=== PATIENT | male | born 1990 | race Caucasian/White ===

== ENCOUNTER 2017-06-04 02:58 | Emergency (ER) | payer SELFPAY ==
[~2017-06-04] VITALS: Ht 182.9 cm; Wt 88.9 kg
[2017-06-04] MEDS ORDERED: CLINDAMYCIN PMX 600MG/50ML 50 ML ONE (03:54)
[2017-06-04] MEDS ORDERED: SODIUM CHLORIDE FLUSH 10ML SYR IVF ONE (04:00)
[2017-06-04] MEDS ORDERED: SODIUM CHLORIDE 0.9% 1,000ML IVBOLUS ONE (04:00)
[2017-06-04] MEDS ORDERED: CLINDAMYCIN PMX 600MG/50ML 50 ML IVPB ONE (04:00)
[2017-06-04 04:02] LABS: HEMATOCRIT 42.2 % (39.2-51.8); HEMOGLOBIN 14.3 g/dL (13.7-18.0); WHITE BLOOD COUNT 8.7 x10^3/uL (3.4-10)
[2017-06-04 04:11] LABS: BLOOD UREA NITROGEN 12 mg/dL (7-18)
[2017-06-04 04:58] VITALS: BP 120/76
== END 2017-06-04 05:50 | disposition home or self-care (01) ==
LOC: ED 05:44
DX: M79.672 Pain in left foot (principal); M79.671 Pain in right foot; M79.662 Pain in left lower leg; I10 Essential (primary) hypertension; F15.10 Other stimulant abuse, uncomplicated
CPT/HCPCS: 36415; 80048; 82040; 83605; 85025; 96365; 99284; J7030

== ENCOUNTER 2018-05-02 04:30 | Emergency (ER) | payer MEDICAID ==
[~2018-05-02] VITALS: Ht 185.4 cm; Wt 90.4 kg
[2018-05-02 04:32] VITALS: BP 126/87
[2018-05-02 05:44] LABS: BASOPHILS # (AUTO) 0.06 x10^3/uL (0-0.1); BASOPHILS % (AUTO) 1 % (0-1); EOSINOPHILS # (AUTO) 0.24 x10^3/uL (0-0.4); EOSINOPHILS % (AUTO) 3 % (1-7); LYMPHOCYTES % (AUTO) 36 % (22-44); MD NO; MEAN CORPUSCULAR HEMOGLOBIN 30.8 pg (27.5-34.5); MEAN CORPUSCULAR HGB CONC 34.2 g/dL (33.2-36.2); MEAN CORPUSCULAR VOLUME 90.1 fL (81-97); MEAN PLATELET VOLUME 7.8 fL (7.4-10.4); MONOCYTES # (AUTO) 0.88 x10^3/uL (0.2-0.8); MONOCYTES % (AUTO) 10 % (2-9); NEUTROPHILS # (AUTO) 4.42 x10^3/uL (1.8-6.8); NEUTROPHILS % (AUTO) 51 % (42-75); PLATELET COUNT 286 x10^3/uL (130-400); RED BLOOD COUNT 4.65 x10^6/uL (4.38-5.82); RED CELL DISTRIBUTION WIDTH 11.6 % (9.4-14.8)
[2018-05-02 05:51] LABS: ALBUMIN 3.5 g/dL (3.4-5.0); ANION GAP 8 mmol/L (5-15); CALCIUM 8.5 mg/dL (8.5-10.1); CHLORIDE 104 mmol/L (98-107); CREATININE 0.98 mg/dL (0.7-1.3)
== END 2018-05-02 06:35 | disposition home or self-care (01) ==
LOC: ED 04:42
DX: L03.115 Cellulitis of right lower limb (principal); I10 Essential (primary) hypertension; Z72.9 Problem related to lifestyle, unspecified
CPT/HCPCS: 36415; 80048; 82040; 85025; 99284

== ENCOUNTER 2018-11-28 12:31 | Inpatient (IN) | payer OTHER ==
[~2018-11-28] VITALS: Ht 185.4 cm; Wt 93.7 kg
[2018-11-28] MEDS ORDERED: SODIUM CHLORIDE FLUSH 10ML SYR IVF ONE (13:00)
--- NOTE | 2018-11-28 13:11 | NUR ---
Received report from MELO Austin. All questions answered. Assuming care of pt. DWAYNEN. No needs expressed.
[2018-11-28 14:01] LABS: BASOPHILS # (AUTO) 0.02 x10^3/uL (0-0.1); BASOPHILS % (AUTO) 0 % (0-1); EOSINOPHILS % (AUTO) 1 % (1-7); LYMPHOCYTES # (AUTO) 2.13 x10^3/uL (1-3.4); LYMPHOCYTES % (AUTO) 18 % (22-44); MD NO; MEAN CORPUSCULAR HGB CONC 32.5 g/dL (33.2-36.2); MEAN CORPUSCULAR VOLUME 89.1 fL (81-97); MEAN PLATELET VOLUME 8.2 fL (7.4-10.4); MONOCYTES # (AUTO) 1.07 x10^3/uL (0.2-0.8); MONOCYTES % (AUTO) 9 % (2-9); NEUTROPHILS # (AUTO) 8.32 x10^3/uL (1.8-6.8); NEUTROPHILS % (AUTO) 71 % (42-75); PLATELET COUNT 302 x10^3/uL (130-400); RED BLOOD COUNT 5.32 x10^6/uL (4.38-5.82)
[2018-11-28 14:15] LABS: ALBUMIN 3.4 g/dL (3.4-5.0); ANION GAP 7 mmol/L (5-15); CALCIUM 9.6 mg/dL (8.5-10.1); CHLORIDE 103 mmol/L (98-107); CREATININE 0.86 mg/dL (0.7-1.3)
[2018-11-28] MEDS ORDERED: CEFTRIAXONE PMX 1GM/50ML 50 ML IVPB ONE (14:30)
[2018-11-28] MEDS ORDERED: HYDROmorphone 1 MG/ML, 1ML INJ IVPush PRN (14:30)
[2018-11-28] MEDS ORDERED: ONDANSETRON 2MG/ML, 2ML IVPush ONE (14:30)
[2018-11-28] MEDS ORDERED: CEFTRIAXONE PMX 1GM/50ML 50 ML ONE (14:37)
[2018-11-28] MEDS ORDERED: ONDANSETRON 2MG/ML, 2ML ONE (14:37)
[2018-11-28] MEDS ORDERED: HYDROmorphone 1 MG/ML, 1ML VIAL ONE (14:38)
--- NOTE | 2018-11-28 15:08 | NUR ---
TASK RN: REPORT FROM MINDY ALEJO PATIENT MEDICATED PER EMAR FOR PAIN/NAUSEA WELL ABX-REQUIRING NEW PIV VITALS STABLE ON MONITOR POC UPDATED REMAINS IN THE CARE OF CORRECTION OFFICERS
[2018-11-28] MEDS ORDERED: SODIUM CHLORIDE FLUSH 10ML SYR IVF PRN (16:00)
--- NOTE | 2018-11-28 16:00 | NUR ---
Attempted to call back floor RN Roshni to provide report. MELO Barakat "in a pt room to help another nurse with an IV." MELO Barakat to call ED back for report.
--- NOTE | 2018-11-28 16:14 | NUR ---
task rn: med req completed.
--- NOTE | 2018-11-28 16:29 | NUR ---
Provided report to MELO Barakat. All questions answered. Patient ready to transfer to floor from ED.
[2018-11-28] MEDS ORDERED: TRAZODONE 50MG TABLET PO PRN (17:00)
[2018-11-28] MEDS ORDERED: ONDANSETRON 2MG/ML, 2ML IVPush PRN (17:00)
[2018-11-28] MEDS ORDERED: DOCUSATE 100 MG CAPSULE PO PRN (17:00)
[2018-11-28] MEDS ORDERED: hydrALAzine 20 MG/ML, 1ML IVPush PRN (17:00)
[2018-11-28] MEDS ORDERED: ACETAMINOPHEN 325 MG TABLET PO PRN (17:00)
[2018-11-28] MEDS ORDERED: BUTALB/APAP/CAFFEINE 50MG/325MG/40MG PO PRN (17:00)
[2018-11-28] MEDS ORDERED: GUAIFENESIN/COD200MG-20MG/10ML LIQUID PO PRN (17:00)
[2018-11-28 17:07] VITALS: BP 130/91
--- NOTE | 2018-11-28 17:16 | NUR ---
Pt tranfered to floor from ED and left with all personal belongings. NADN. No needs expressed.
[2018-11-28] MEDS: ENOXAPARIN 40 MG/0.4 ML SQ SCH (18:00)
[2018-11-28] MEDS: LACTATED RINGERS 1,000 ML IV SCH (18:00)
[2018-11-28 18:05] VITALS: BP 130/91
[2018-11-28] MEDS: AMPICILLIN/SULBACTAM 3 GM in SODIUM CHLORIDE 0.9% 100 ML IV SCH (18:35)
[2018-11-28] MEDS: KETOROLAC 30 MG/1 ML IV PRN (18:36)
[2018-11-28 19:13] VITALS: BP 129/83
[2018-11-28] MEDS: OXYcodone/APAP 5/325MG TABLET PO PRN (20:14)
[2018-11-29] MEDS: AMPICILLIN/SULBACTAM 3 GM in SODIUM CHLORIDE 0.9% 100 ML IV SCH ×5 (01:22→21:21)
[2018-11-29 01:37] VITALS: BP 110/71
[2018-11-29] MEDS: LACTATED RINGERS 1,000 ML IV SCH ×2 (03:16→12:53)
[2018-11-29 05:44] LABS: BASOPHILS # (AUTO) 0.04 x10^3/uL (0-0.1); BASOPHILS % (AUTO) 0 % (0-1); EOSINOPHILS # (AUTO) 0.14 x10^3/uL (0-0.4); EOSINOPHILS % (AUTO) 2 % (1-7); LYMPHOCYTES # (AUTO) 2.22 x10^3/uL (1-3.4); LYMPHOCYTES % (AUTO) 26 % (22-44); MD NO; MEAN CORPUSCULAR HEMOGLOBIN 28.6 pg (27.5-34.5); MEAN CORPUSCULAR HGB CONC 32.5 g/dL (33.2-36.2); MEAN CORPUSCULAR VOLUME 87.9 fL (81-97); MEAN PLATELET VOLUME 7.8 fL (7.4-10.4); MONOCYTES # (AUTO) 0.86 x10^3/uL (0.2-0.8); MONOCYTES % (AUTO) 10 % (2-9); NEUTROPHILS # (AUTO) 5.44 x10^3/uL (1.8-6.8); NEUTROPHILS % (AUTO) 63 % (42-75); PLATELET COUNT 258 x10^3/uL (130-400); RED BLOOD COUNT 4.67 x10^6/uL (4.38-5.82); RED CELL DISTRIBUTION WIDTH 13.3 % (9.4-14.8)
[2018-11-29 05:57] LABS: ANION GAP 6 mmol/L (5-15); CALCIUM 9.1 mg/dL (8.5-10.1); CHLORIDE 107 mmol/L (98-107)
[2018-11-29 07:15] VITALS: BP 102/69
[2018-11-29] MEDS: OXYcodone/APAP 5/325MG TABLET PO PRN ×3 (09:21→22:12)
[2018-11-29 13:17] VITALS: BP 101/69
[2018-11-29 19:14] VITALS: BP 115/75
[2018-11-29] MEDS: ENOXAPARIN 40 MG/0.4 ML SQ SCH (21:21)
[2018-11-30 01:16] VITALS: BP 95/58
[2018-11-30] MEDS: AMPICILLIN/SULBACTAM 3 GM in SODIUM CHLORIDE 0.9% 100 ML IV SCH ×2 (03:05→09:01)
[2018-11-30] MEDS: OXYcodone/APAP 5/325MG TABLET PO PRN ×3 (05:10→20:47)
[2018-11-30] MEDS ORDERED: VANCOMYCIN PER PHARMACY MC PRN (08:30)
[2018-11-30 08:59] VITALS: BP 127/79
[2018-11-30] MEDS ORDERED: PHARMACOKINETIC MONITORING MC PRN (09:00)
[2018-11-30] MEDS: VANCOMYCIN 1,900 MG in SODIUM CHLORIDE 0.9% 250 ML IV SCH ×2 (10:02→23:47)
[2018-11-30] MEDS: KETOROLAC 30 MG/1 ML IV PRN (11:30)
[2018-11-30 14:00] VITALS: BP 124/82
[2018-11-30] MEDS: PIPERACILLIN/TAZO/PMX 3.375GM 50 ML IV SCH ×2 (14:35→20:47)
[2018-11-30 19:41] VITALS: BP 100/65
[2018-11-30] MEDS: ENOXAPARIN 40 MG/0.4 ML SQ SCH (20:47)
[2018-12-01] MEDS: PIPERACILLIN/TAZO/PMX 3.375GM 50 ML IV SCH ×4 (02:33→21:23)
[2018-12-01] MEDS: OXYcodone/APAP 5/325MG TABLET PO PRN ×4 (02:53→23:39)
[2018-12-01 02:57] VITALS: BP 113/76
[2018-12-01 06:59] LABS: BASOPHILS # (AUTO) 0.04 x10^3/uL (0-0.1); BASOPHILS % (AUTO) 1 % (0-1); EOSINOPHILS # (AUTO) 0.12 x10^3/uL (0-0.4); EOSINOPHILS % (AUTO) 2 % (1-7); LYMPHOCYTES # (AUTO) 2.05 x10^3/uL (1-3.4); LYMPHOCYTES % (AUTO) 30 % (22-44); MD NO; MEAN CORPUSCULAR HEMOGLOBIN 29.1 pg (27.5-34.5); MEAN CORPUSCULAR HGB CONC 32.5 g/dL (33.2-36.2); MEAN CORPUSCULAR VOLUME 89.3 fL (81-97); MEAN PLATELET VOLUME 8.2 fL (7.4-10.4); MONOCYTES # (AUTO) 0.59 x10^3/uL (0.2-0.8); MONOCYTES % (AUTO) 9 % (2-9); NEUTROPHILS # (AUTO) 4.02 x10^3/uL (1.8-6.8); NEUTROPHILS % (AUTO) 59 % (42-75); PLATELET COUNT 270 x10^3/uL (130-400); RED BLOOD COUNT 4.56 x10^6/uL (4.38-5.82); RED CELL DISTRIBUTION WIDTH 13.4 % (9.4-14.8)
[2018-12-01 07:13] LABS: ANION GAP 8 mmol/L (5-15); CALCIUM 8.8 mg/dL (8.5-10.1); CHLORIDE 112 mmol/L (98-107)
[2018-12-01 07:16] VITALS: BP 95/54
[2018-12-01 07:22] LABS: CREATININE 0.81 mg/dL (0.7-1.3)
[2018-12-01 08:02] LABS: HCT (SEDRATE) 40.7 % (39.2-51.8)
[2018-12-01] MEDS: VANCOMYCIN 1,900 MG in SODIUM CHLORIDE 0.9% 250 ML IV SCH ×2 (12:18→23:39)
[2018-12-01 12:54] VITALS: BP 120/74
[2018-12-01 20:02] VITALS: BP 110/70
[2018-12-01] MEDS: ENOXAPARIN 40 MG/0.4 ML SQ SCH (21:23)
[2018-12-02 01:33] VITALS: BP 107/67
[2018-12-02] MEDS: PIPERACILLIN/TAZO/PMX 3.375GM 50 ML IV SCH ×3 (02:40→15:52)
[2018-12-02] MEDS: OXYcodone/APAP 5/325MG TABLET PO PRN ×3 (06:36→18:17)
[2018-12-02 07:09] VITALS: BP 103/67
[2018-12-02] MEDS: VANCOMYCIN 1,900 MG in SODIUM CHLORIDE 0.9% 250 ML IV SCH (11:38)
[2018-12-02] MEDS ORDERED: AMOX1TAB64 PO (15:36)
[2018-12-02] MEDS ORDERED: IBUP-1222 PO (15:36)
[2018-12-02] MEDS ORDERED: LINE600T37 PO (15:36)
[2018-12-02] MEDS ORDERED: ACET325T14 PO (15:36)
[2018-12-02 15:38] VITALS: BP 122/83
== END 2018-12-02 18:40 | disposition home or self-care (01) | DRG 872 ==
LOC: MERGE 12:31 → ED 15:46 → EDIP 15:47 → ED 16:11 → 3NE 17:00
PROVIDERS: ADMIT Internal Medicine; ATTEND Internal Medicine
DX: A41.9 Sepsis, unspecified organism (principal); E87.1 Hypo-osmolality and hyponatremia; L03.113 Cellulitis of right upper limb; I10 Essential (primary) hypertension; J02.0 Streptococcal pharyngitis; Z82.49 Family history of ischemic heart disease and other diseases of the circulatory system; Z87.891 Personal history of nicotine dependence
CPT/HCPCS: 36415; 80048; 80202; 82040; 83605; 85025; 85651; 86140; 87040; 96365; 96375; G0378; J0295; J0696; J1170; J1650; J1885; J2405; J2543; J3370; J7050; J7120

== ENCOUNTER 2019-07-09 04:29 | Emergency (ER) | payer MEDICAID ==
[~2019-07-09] VITALS: Ht 185.4 cm; Wt 100.2 kg
[~2019-07-09 04:29] MED LIST: ACET325T14 PO; AMOX1TAB64 PO; IBUP-1222 PO; LINE600T12 PO
--- NOTE | 2019-07-09 04:40 | NUR ---
ATTEMPTED ORAL TEMP X 4 IN TRIAGE. PT TEMP NOT READING AT THIS TIME. PT AMBULATED TO ROOM WHERE TECH WILL ATTEMPT TEMP
[2019-07-09 04:53] VITALS: BP 143/97
--- NOTE | 2019-07-09 04:55 | NUR ---
Patient presents to ER with an abscess on the right index finger. 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 Patient states the abscess looks like the one he had on his arm but much smaller. He states there has been pus draining from it.
[2019-07-09] MEDS ORDERED: LIDOCAINE-MPF 1%, 5ML ONE (05:10)
[2019-07-09] MEDS ORDERED: LIDOCAINE-MPF 1%, 5ML INFIL ONE (05:30)
[2019-07-09] MEDS ORDERED: OXYcodone/APAP 5/325MG TABLET PO ONE (05:30)
[2019-07-09] MEDS ORDERED: NEOSPORIN OINT. PKT 1 PACKET ONE (05:49)
--- NOTE | 2019-07-09 06:00 | NUR ---
Applied bacitracin to wound with bandage. Discharge instructions given. All questions and concerns addressed. Patient ambulatory with a steady gait. Belongings with patient.
== END 2019-07-09 06:02 | disposition home or self-care (01) ==
LOC: ED 05:30
DX: L02.511 Cutaneous abscess of right hand (principal); F17.210 Nicotine dependence, cigarettes, uncomplicated; I10 Essential (primary) hypertension
CPT/HCPCS: 99283; 99406

== ENCOUNTER 2020-08-29 20:06 | Emergency (ER) | payer MEDICAID, OTHER ==
[~2020-08-29] VITALS: Ht 185.4 cm; Wt 100.6 kg
--- NOTE | 2020-08-29 20:27 | NUR ---
KORI ELMORE FROM LONGTERM FOR C/O CP STARTING TONGIHT. 01/31 LEFT SIDE CP DESCRIBED BURNING PRESSURE. PT. DENEIS RADIATION OF PAIN. SLIGHTLY DIAPHORETIC ON ARRIVAL. DENIES SOB/N/V. 324 ASA AND 1 NITRO TAB EN ROUTE. EKG DONE ON ARRIVAL. AWAITING PROVIDER EVAL. CONTINUOUS PULSE OX, B/P, AND CARDIAC MONTIORS PLACED. SINUS TACH NOTED ON MONITOR. OFFICER AT BS. ALL SAFETY MEASURES OBSERVED. CALL LIGHT IN REACH.
[2020-08-29] MEDS ORDERED: KETOROLAC 30 MG/1 ML ONE (20:51)
[2020-08-29 20:52] LABS: BASOPHILS % (AUTO) 1 % (0-1); EOSINOPHILS % (AUTO) 1 % (1-7); LYMPHOCYTES % (AUTO) 38 % (22-44); MEAN CORPUSCULAR HEMOGLOBIN 28.4 pg (27.5-34.5); MEAN PLATELET VOLUME 8.1 fL (7.4-10.4); MONOCYTES % (AUTO) 10 % (2-9); NEUTROPHILS % (AUTO) 51 % (42-75); PLATELET COUNT 275 x10^3/uL (130-400); RED BLOOD COUNT 6.09 x10^6/uL (4.38-5.82); RED CELL DISTRIBUTION WIDTH 14.5 % (9.4-14.8)
[2020-08-29 20:53] LABS: MD NO
[2020-08-29] MEDS ORDERED: KETOROLAC 30 MG/1 ML IM ONE (21:00)
[2020-08-29 21:05] LABS: ALANINE AMINOTRANSFERASE 100 U/L (12-78); ALBUMIN 3.9 g/dL (3.4-5.0); ANION GAP 8 mmol/L (5-15); CALCIUM 9.2 mg/dL (8.5-10.1); CHLORIDE 109 mmol/L (98-107)
--- NOTE | 2020-08-29 21:07 | NUR ---
PT. MEDICATED FOR CONTINUED PAIN PER MAR. URINAL PROVIDED TO PT. AND URINE SAMPLE REQUESTED.
[2020-08-29 21:10] LABS: ALKALINE PHOSPHATASE 115 U/L (45-117); BILIRUBIN,TOTAL 0.4 mg/dL (0.2-1.0); TOTAL PROTEIN 8.3 g/dL (6.4-8.2); TROPONIN I < 0.015 ng/mL (0.000-0.045)
--- NOTE | 2020-08-29 21:24 | NUR ---
URINE SAMPLE REQUESTED FROM PT. AGAIN. PT. ATTEMPTING.
--- NOTE | 2020-08-29 21:46 | NUR ---
URINE SAMPLE COLLECTED AND WALKED TO LAB. VS UPDATED. PT. REPORTS SOME RELIEF FROM PAIN AFTER CUT OFF MAN BUT STATES "IT COMES IN WAVES".
[2020-08-29 22:06] LABS: AMPHETAMINE SCREEN, URINE Negative (Negative); BARBITURATE SCREEN, URINE Negative (Negative); BENZODIAZEPINE SCREEN, URINE Negative (Negative); CANNABINOID SCREEN, URINE Negative (Negative); COCAINE SCREEN, URINE Negative (Negative); METHADONE SCREEN, URINE Negative (Negative); OPIATE SCREEN, URINE Negative (Negative)
[2020-08-29] MEDS ORDERED: FAMOTIDINE 20 MG TABLET PO ONE (23:00)
[2020-08-29] MEDS ORDERED: MAALOX/HYOSCYAMINE/LIDOCAINE 45 ML BTL PO ONE (23:00)
[2020-08-29] MEDS ORDERED: MAALOX/HYOSCYAMINE/LIDOCAINE 45 ML BTL ONE (23:27)
[2020-08-29] MEDS ORDERED: FAMOTIDINE 20 MG TABLET ONE (23:27)
--- NOTE | 2020-08-29 23:32 | NUR ---
PT. MEDICATED PER AUG. PT. REPORTS FEELING MUCH BETTER AT THIS TIME COMPARTED TO ARRIVAL. HR IMPROVED. VS UPDATED. OFFICER REMAINS AT BS. ALL SAETEY MEASURES MAINTAINED.
[2020-08-30 00:32] VITALS: BP 130/91
== END 2020-08-30 00:33 | disposition home or self-care (01) ==
LOC: ED 21:23
DX: R07.2 Precordial pain (principal); R00.0 Tachycardia, unspecified; F15.10 Other stimulant abuse, uncomplicated
CPT/HCPCS: 36415; 71045; 80053; 80307; 84484; 85025; 85379; 93005; 96372; 99285; J1885